=== PATIENT | female | born 1950 | race Caucasian/White ===

== ENCOUNTER 2018-05-25 13:11 | Emergency (ER) | payer MEDICARE, OTHER ==
[~2018-05-25] VITALS: Ht 162.6 cm; Wt 68.0 kg
[~2018-05-25 13:11] MED LIST: AMIT10 PO; ASCO500; ASPI325 PO; ASPI81CH; ASPI81CH PO; Amoxicillin500 MG PO; B Complete1 EACH PO; CITA20 PO; CLON.5 PO; CYCL10; DIAZ5; ESCI10 PO; FISH1000; FLUCONAZOL400 MG/200 IV; GABA300; GABA300 PO; HYDR1TAB94 PO; MELATONIN10 M2; METO25ER PO; Mycamine100 MG/VIA IV; NAPR550; NORT25 PO; ONDA4 PO; OXYACE5T PO; OXYC10TA19 PO; OXYC30ER PO; OXYC5; OXYC5 PO; TIZANIDINE HCL2 MG PO
[2018-05-25] MEDS ORDERED: Bupropion Xl150 MG PO (13:23)
[2018-05-25] MEDS ORDERED: TRAZ50 PO (13:23)
[2018-05-25] MEDS ORDERED: ESCI20 PO (13:23)
[2018-05-25] MEDS ORDERED: FLUC200 PO (13:24)
[2018-05-25 14:13] LABS: BASOPHILS ABSOLUTE AUTO 0.03 K/mm3 (0.00-0.23); BASOPHILS PERCENT AUTO 0 % (0-2); EOSINOPHILS ABSOLUTE AUTO 0.77 K/mm3 (0.00-0.68); EOSINOPHILS PERCENT AUTO 9 % (0-6); Hematocrit 45.4 % (33.0-51.0); Hemoglobin 14.2 g/dL (11.5-16.0); IMMATURE GRAN ABSOLUTE AUTO 0.04 K/mm3 (0.00-0.10); IMMATURE GRAN PERCENT AUTO 0 % (0-1); LYMPHOCYTES ABSOLUTE AUTO 1.34 K/mm3 (0.84-5.20); LYMPHOCYTES PERCENT AUTO 15 % (21-46); MONOCYTES ABSOLUTE AUTO 0.51 K/mm3 (0.16-1.47); MONOCYTES PERCENT AUTO 6 % (4-13); Mean Corpuscular HGB 29.1 pg (26.0-34.0); Mean Corpuscular HGB Conc 31.3 g/dL (31.5-36.5); Mean Corpuscular Volume 93 fL (80-100); Mean Platelet Volume 9.3 fL (9.1-12.4); NEUTROPHILS ABSOLUTE AUTO 6.23 K/mm3 (1.96-9.15); NEUTROPHILS PERCENT AUTO 70 % (41-73); Platelet Count 332 K/mm3 (150-400); RDW Coefficient Variation 13.6 % (11.7-14.2); RDW Standard Deviation 45.9 fL (35.1-46.3); Red Blood Cell Count 4.88 M/mm3 (3.80-5.20); White Blood Cell Count 8.92 K/mm3 (4.00-11.30)
[2018-05-25 14:30] LABS: Alanine Aminotransfer (ALT/SGP 13 U/L (12-78); Albumin, Blood 3.5 g/dL (3.4-5.0); Alk Phos 76 U/L (50-136); Anion Gap 10 mmol/L (6-16); Aspartate Aminotrans (AST/SGOT 15 U/L (12-37); Bilirubin, Total 0.5 mg/dL (0.1-1.0); Blood Urea Nitrogen 18 mg/dL (8-24); Bun/Creatinine Ratio 20.3 (12.0-20.0); CO2, Blood 25 mmol/L (21-32); Calcium, Blood 8.9 mg/dL (8.5-10.1); Chloride, Blood 104 mmol/L (98-108); Creatinine, Blood 0.89 mg/dL (0.40-1.00); Globulin, Blood 3.6 g/dL (2.2-4.0); Glomerular Filtration Rate >60 (60-); Glucose, Blood 101 mg/dL (70-99); Potassium, Blood 3.6 mmol/L (3.5-5.5); Sodium, Blood 139 mmol/L (136-145); Total Protein, Blood 7.1 g/dL (6.4-8.2)
[2018-05-25] MEDS ORDERED: Zofran Odt4 MG SL (16:51)
[2018-05-25] MEDS ORDERED: Cipro500 MG PO (16:51)
[2018-05-25] MEDS ORDERED: Flagyl500 MG PO (16:51)
== END 2018-05-25 17:06 | disposition home or self-care (01) ==
LOC: ER 13:11
PROVIDERS: Nurse Practitioner Family
DX: K52.9 Noninfective gastroenteritis and colitis, unspecified (principal); Z88.5 Allergy status to narcotic agent; Z79.899 Other long term (current) drug therapy; F32.9 Major depressive disorder, single episode, unspecified; Z87.891 Personal history of nicotine dependence
CPT/HCPCS: 36415; 74177; 80053; 83690; 85025; 96360; 96361; 99284-25; J7030; Q9967

== ENCOUNTER → 2019-08-29 | Outpatient (CLI) | payer OTHER ==
[~2019-08-29] MED LIST changes: +Bupropion Xl150 MG PO; +Cipro500 MG PO; +ESCI20 PO; +FLUC200 PO; +Flagyl500 MG PO; +TRAZ50 PO; +Zofran Odt4 MG SL
[2019-08-29 20:47] LABS: Adenovirus F 40/41 Not Detected (NOT DETECT); Astrovirus Not Detected (NOT DETECT); Campylobacter Sp Not Detected (NOT DETECT); Cryptosporidium Not Detected (NOT DETECT); Cyclospora Cayetanensis Not Detected (NOT DETECT); E. Coli O157 Not Detected (NOT DETECT); Entamoeba Histolytica Not Detected (NOT DETECT); Enteroaggregative E. coli-EAEC Not Detected (NOT DETECT); Enteropathogenic E. coli-EPEC Not Detected (NOT DETECT); Enterotoxigenic E. coli-ETEC Not Detected (NOT DETECT); Giardia Lamblia Not Detected (NOT DETECT); Norovirus GI/GII Not Detected (NOT DETECT); Plesiomonas Shigelloides Not Detected (NOT DETECT); Rotavirus A Not Detected (NOT DETECT); Salmonella Sp Not Detected (NOT DETECT); Sapovirus Not Detected (NOT DETECT); Shiga Toxin-prod E. coli-STEC Not Detected (NOT DETECT); Shigella/Enteroin E. coli-EIEC Not Detected (NOT DETECT); Vibrio Cholerae Not Detected (NOT DETECT); Vibrio Sp Not Detected (NOT DETECT); Yersinia Enterocolitica Not Detected (NOT DETECT)
== END | disposition home or self-care (01) ==
LOC: LAB SHORT 15:00 → OLS 15:00 → LAB FUT 08-15 15:20
PROVIDERS: Student in an Organized Health Care Education/Training Program
DX: R19.7 Diarrhea, unspecified (principal); R10.30 Lower abdominal pain, unspecified
CPT/HCPCS: 0097U

== ENCOUNTER → 2021-10-24 | Outpatient (CLI) | payer OTHER ==
[2021-10-24 17:09] LABS: Bun/Creatinine Ratio 16.9 (12.0-20.0); Calcium, Blood 9.5 mg/dL (8.5-10.1); Creatinine, Blood 0.95 mg/dL (0.40-1.00); Potassium, Blood 4.3 mmol/L (3.5-5.5)
== END | disposition home or self-care (01) ==
LOC: LAB 13:23 → LAB SHORT 13:23
PROVIDERS: Nurse Practitioner Family
DX: R94.4 Abnormal results of kidney function studies (principal)
CPT/HCPCS: 80048

== ENCOUNTER → 2021-11-24 | Outpatient (CLI) | payer OTHER | END | disposition home or self-care (01) | LOC: LAB 17:22 → LAB SHORT 17:22 | DX: R30.9 Painful micturition, unspecified (principal) | CPT/HCPCS: 87086 ==

== ENCOUNTER → 2021-12-30 | Outpatient (CLI) | payer OTHER | END | disposition home or self-care (01) | LOC: LAB 12:52 → LAB SHORT 12:52 | DX: R19.7 Diarrhea, unspecified (principal) | CPT/HCPCS: 87177; 87209 ==

== ENCOUNTER → 2022-05-23 | Outpatient (CLI) | payer OTHER ==
[2022-05-23 17:13] LABS: Adenovirus F 40/41 Not Detected (NOT DETECT); Astrovirus Not Detected (NOT DETECT); Campylobacter Sp Not Detected (NOT DETECT); Cryptosporidium Not Detected (NOT DETECT); Cyclospora Cayetanensis Not Detected (NOT DETECT); E. Coli O157 Not Detected (NOT DETECT); Entamoeba Histolytica Not Detected (NOT DETECT); Enteroaggregative E. coli-EAEC Not Detected (NOT DETECT); Enteropathogenic E. coli-EPEC Not Detected (NOT DETECT); Enterotoxigenic E. coli-ETEC Not Detected (NOT DETECT); Giardia Lamblia Not Detected (NOT DETECT); Norovirus GI/GII Not Detected (NOT DETECT); Plesiomonas Shigelloides Not Detected (NOT DETECT); Rotavirus A Not Detected (NOT DETECT); Salmonella Sp Not Detected (NOT DETECT); Sapovirus Not Detected (NOT DETECT); Shiga Toxin-prod E. coli-STEC Not Detected (NOT DETECT); Shigella/Enteroin E. coli-EIEC Not Detected (NOT DETECT); Vibrio Cholerae Not Detected (NOT DETECT); Vibrio Sp Not Detected (NOT DETECT); Yersinia Enterocolitica Not Detected (NOT DETECT)
== END | disposition home or self-care (01) ==
LOC: LAB 11:40 → LAB SHORT 11:40
PROVIDERS: Nurse Practitioner Family
DX: R19.7 Diarrhea, unspecified (principal)
CPT/HCPCS: 83993; 87324; 87507

== ENCOUNTER → 2022-11-24 | Outpatient (CLI) | payer OTHER ==
[2022-11-24 14:32] LABS: BASOPHILS ABSOLUTE AUTO 0.06 K/mm3 (0.00-0.23); BASOPHILS PERCENT AUTO 1 % (0-2); EOSINOPHILS ABSOLUTE AUTO 0.38 K/mm3 (0.00-0.68); EOSINOPHILS PERCENT AUTO 6 % (0-6); Hematocrit 42.6 % (33.0-51.0); IMMATURE GRAN ABSOLUTE AUTO 0.03 K/mm3 (0.00-0.10); IMMATURE GRAN PERCENT AUTO 1 % (0-1); LYMPHOCYTES ABSOLUTE AUTO 1.88 K/mm3 (0.84-5.20); LYMPHOCYTES PERCENT AUTO 31 % (21-46); MONOCYTES ABSOLUTE AUTO 0.48 K/mm3 (0.16-1.47); MONOCYTES PERCENT AUTO 8 % (4-13); Mean Corpuscular HGB 30.4 pg (26.0-34.0); Mean Corpuscular HGB Conc 32.9 g/dL (31.5-36.5); Mean Corpuscular Volume 92 fL (80-100); Mean Platelet Volume 10.5 fL (9.1-12.4); NEUTROPHILS ABSOLUTE AUTO 3.18 K/mm3 (1.96-9.15); NEUTROPHILS PERCENT AUTO 53 % (41-73); Platelet Count 341 K/mm3 (150-400); RDW Coefficient Variation 12.7 % (11.7-14.2); Red Blood Cell Count 4.61 M/mm3 (3.80-5.20); White Blood Cell Count 6.01 K/mm3 (4.00-11.30)
[2022-11-24 15:55] LABS: Alanine Aminotransfer (ALT/SGP 20 U/L (12-78); Albumin, Blood 3.9 g/dL (3.4-5.0); Albumin/Globulin Ratio 1.1 (0.8-1.8); Alk Phos 67 U/L (50-136); Anion Gap 2 mmol/L (6-16); Aspartate Aminotrans (AST/SGOT 18 U/L (12-37); Bilirubin, Total 0.6 mg/dL (0.1-1.0); Blood Urea Nitrogen 22 mg/dL (8-24); Bun/Creatinine Ratio 20.8 (12.0-20.0); CHOL/HDL RATIO 4.1; CO2, Blood 27 mmol/L (21-32); Calcium, Blood 9.1 mg/dL (8.5-10.1); Chloride, Blood 108 mmol/L (98-108); Cholesterol 246 mg/dL (50-200); Creatinine, Blood 1.06 mg/dL (0.40-1.00); Globulin, Blood 3.4 g/dL (2.2-4.0); Glomerular Filtration Rate 55 (60-); Glucose, Blood 96 mg/dL (70-99); HDL Cholesterol 60 mg/dL (>39); LDL/HDL RATIO 2.6; Low Density Lipoprotein Chol 155 mg/dL (0-110); Potassium, Blood 4.7 mmol/L (3.5-5.5); Sodium, Blood 137 mmol/L (136-145); Total Protein, Blood 7.3 g/dL (6.4-8.2); Triglycerides 155 mg/dL (30-160); Very Low Density Lipoprot Chol 31 mg/dL (6-32)
== END | disposition home or self-care (01) ==
LOC: LAB 13:45 → LAB SHORT 13:45
PROVIDERS: Nurse Practitioner Family
DX: E66.9 Obesity, unspecified (principal); R53.83 Other fatigue
CPT/HCPCS: 80053; 80061; 84443; 85025

== ENCOUNTER → 2023-06-08 | Outpatient (CLI) | payer OTHER ==
[2023-06-08 13:05] LABS: Adenovirus F 40/41 Not Detected (NOT DETECT); Astrovirus Not Detected (NOT DETECT); Campylobacter Sp Not Detected (NOT DETECT); Cryptosporidium Not Detected (NOT DETECT); Cyclospora Cayetanensis Not Detected (NOT DETECT); E. Coli O157 Not Detected (NOT DETECT); Entamoeba Histolytica Not Detected (NOT DETECT); Enteroaggregative E. coli-EAEC Not Detected (NOT DETECT); Enteropathogenic E. coli-EPEC Not Detected (NOT DETECT); Enterotoxigenic E. coli-ETEC Not Detected (NOT DETECT); Giardia Lamblia Not Detected (NOT DETECT); Norovirus GI/GII Not Detected (NOT DETECT); Plesiomonas Shigelloides Not Detected (NOT DETECT); Rotavirus A Not Detected (NOT DETECT); Salmonella Sp Not Detected (NOT DETECT); Sapovirus Not Detected (NOT DETECT); Shiga Toxin-prod E. coli-STEC Not Detected (NOT DETECT); Shigella/Enteroin E. coli-EIEC Not Detected (NOT DETECT); Vibrio Cholerae Not Detected (NOT DETECT); Vibrio Sp Not Detected (NOT DETECT); Yersinia Enterocolitica Not Detected (NOT DETECT)
== END ==
LOC: LAB SHORT 08:00 → LAB 08:00 → LAB FUT 05-07 11:10
PROVIDERS: Nurse Practitioner Family
DX: R19.7 Diarrhea, unspecified (principal)
CPT/HCPCS: 87324; 87507

== ENCOUNTER 2024-07-08 09:43 | Day surgery (SDC) | payer OTHER ==
[~2024-07-08] VITALS: Ht 160 cm; Wt 62.2 kg
[2024-07-08] VITALS (17 sets, daily range): BP systolic 100–130; BP diastolic 53–99
[~2024-07-08 09:43] MED LIST changes: +ATOR20 PO; +DULO30 PO; +PREG150 PO; +PROBIOTIC1 EA14 PO
[2024-07-08] MEDS ORDERED: Lactated Ringer's 1,000 ML IV SCH ×2 (10:05→10:45)
[2024-07-08] MEDS ORDERED: Chlorhexidine Mouth Care 15 ML UDC MT SCH (10:05)
[2024-07-08] MEDS ORDERED: Tranexamic Acid 1,000 MG in NS 100 ML IV SCH (10:05)
[2024-07-08] MEDS ORDERED: Acetaminophen 500 MG Tab PO SCH ×2 (10:05→21:00)
[2024-07-08] MEDS ORDERED: CeFAZolin Sodium 2,000 MG in NS 100 ML IV SCH ×2 (10:05→20:00)
[2024-07-08] MEDS ORDERED: Ropivacaine 0.5% HCl/Pf 123.125 MG,EPINEPHrine HCL 0.25 MG,Ketorolac Tromethamine 15 MG... INFIL SCH (10:05)
[2024-07-08] MEDS ORDERED: CeFAZolin Sodium 2,000 MG VIAL ONE (10:12)
[2024-07-08] MEDS ORDERED: Promethazine HCl 25 MG Tab PO PRN (10:40)
[2024-07-08] MEDS ORDERED: DiphenhydrAMINE HCL 25 MG Cap PO PRN (10:40)
[2024-07-08] MEDS ORDERED: FLU VACC TS2024-25(6MOS UP)/PF 45 MCG/0.5 ML SYRINGE IM ONE (10:40)
[2024-07-08] MEDS ORDERED: Bisacodyl 10 MG Supp PR PRN (10:40)
[2024-07-08] MEDS ORDERED: HYDROmorphone HCl/Pf 1MG SYR IV PRN (10:40)
[2024-07-08] MEDS ORDERED: Ondansetron HCl 2 MG / ML 2ML Vial IV PRN (10:45)
[2024-07-08] MEDS ORDERED: Magnesium Hydroxide Conc 10 ML UDC PO PRN (10:45)
[2024-07-08] MEDS ORDERED: OxyCODONE HCL 5 MG TAB PO PRN ×2 (10:45)
--- NOTE | 2024-07-08 10:53 | NUR ---
History, Chart, Medications and Allergies reviewed before start of procedure. Pre-Op teaching done. Pt verbalizes understanding. Patient confirms NPO status and agrees with scheduled surgery. PT BELONGINGS BAG PLACED UNDER BED. PT GLASSES PLACED IN PACU.
[2024-07-08] MEDS ORDERED: Metoclopramide HCl 5MG / ML 2ML Vial IV PRN (12:35)
[2024-07-08] MEDS ORDERED: propofoL 50 ML IV ONE (12:39)
[2024-07-08] MEDS ORDERED: Midazolam HCl 1MG / ML 2ML Vial ONE (12:39)
[2024-07-08] MEDS ORDERED: FentaNYL Citrate 50 MCG/ML 2 ML Injection ONE ×2 (12:57→14:48)
[2024-07-08] MEDS ORDERED: Phenylephrine HCl 10mg/ml 1 ml Vial ONE (13:05)
[2024-07-08] MEDS ORDERED: HYDROmorphone HCl/Pf 1MG SYR ONE (15:01)
[2024-07-08] MEDS ORDERED: Ketorolac Tromethamine 30mg Vial ONE (15:02)
--- NOTE | 2024-07-08 15:51 | NUR ---
POST OP NOTE PT IS ALERT AND FOLLOWING COMMANDS. DRESSING C/D/I, CIRCULATION INTACT TO LLE. PT ABLE TO WIGGLE TOES. VSS. PT MEDICATED FOR PAIN PER EMAR SHORTLY AFTER ARRIVAL. HAIR LEMUS, POLAR PACK ON. CALL LIGHT IN REACH AND FAMILY AT BEDSIDE.
[2024-07-08] MEDS ORDERED: Metoclopramide HCl 5MG / ML 2ML Vial ONE (16:16)
[2024-07-08] MEDS ORDERED: Ondansetron HCl 2 MG / ML 2ML Vial ONE (16:16)
[2024-07-08] MEDS ORDERED: Sugammadex Sodium 200 MG/2ML SDV (100 MG/ML) ONE (17:03)
[2024-07-08] MEDS ORDERED: Ketorolac Tromethamine 15mg Vial IV SCH (18:00)
--- NOTE | 2024-07-08 18:38 | NUR ---
SHIFT SUMMARY PT IS POD0 FOR L TKA. PT IS ALERT, FOLLOWING COMMANDS. TOLERATING PO REG DIET AND FLUIDS. PAIN IS TOLERABLE W/ PAIN MEDS PER EMAR. PT HAS NOT BEEN OOB SINCE SURGERY, REQUESTING TO GET UP AFTER DINNER. VSS. DRESSING C/D/I, CAP REFILL 2 SECS IN L LEG. DENIES N/T TO LLE. PAS, HAIR YUAN, POLAR PACK IN PLACE. PT CURRENTLY RESTING IN BED, CALL LIGHT IN REACH.
[2024-07-08] MEDS ORDERED: Docusate Sodium 100 MG Cap PO SCH (21:00)
[2024-07-08] MEDS ORDERED: Pregabalin 75 MG Cap PO SCH (21:00)
[2024-07-08] MEDS ORDERED: Atorvastatin 10 MG Tab PO SCH (21:00)
[2024-07-09 03:38] VITALS: BP 102/65
--- NOTE | 2024-07-09 04:34 | NUR ---
SHIFT SUMMARY POD 1 L TKA PT RESTLESS T/O THE NIGHT. PAIN MANAGED PER EMAR. TOLERATING PO INTAKE, VOIDING. PT IS 1P SBA W/ FWW AND GB, PT NEEDS LOTS OF CUEING AND REMINDERS. DRESING OF YUKO AND AQUACEL TO L KNEE IS C/D/I. PLAN TO GET UP IN CHAIR THIS AM AND WORK WITH THERAPY. THEN OKAY TO D/C HOME. VSS. NO OTHER CONCERNS AT THIS TIMEM, CALL LIGHT WITHIN REACH
[2024-07-09 05:44] LABS: BASOPHILS ABSOLUTE AUTO 0.01 K/mm3 (0.00-0.23); BASOPHILS PERCENT AUTO 0 % (0-2); EOSINOPHILS PERCENT AUTO 0 % (0-6); Hematocrit 35.1 % (33.0-51.0); Hemoglobin 11.4 g/dL (11.5-16.0); IMMATURE GRAN ABSOLUTE AUTO 0.06 K/mm3 (0.00-0.10); IMMATURE GRAN PERCENT AUTO 1 % (0-1); LYMPHOCYTES ABSOLUTE AUTO 1.06 K/mm3 (0.84-5.20); LYMPHOCYTES PERCENT AUTO 11 % (21-46); MONOCYTES ABSOLUTE AUTO 0.53 K/mm3 (0.16-1.47); MONOCYTES PERCENT AUTO 5 % (4-13); Mean Corpuscular HGB Conc 32.5 g/dL (31.5-36.5); Mean Corpuscular Volume 92 fL (80-100); Mean Platelet Volume 9.9 fL (9.1-12.4); NEUTROPHILS ABSOLUTE AUTO 8.31 K/mm3 (1.96-9.15); NEUTROPHILS PERCENT AUTO 83 % (41-73); Platelet Count 291 K/mm3 (150-400); RDW Coefficient Variation 13.9 % (11.7-14.2); RDW Standard Deviation 47.2 fL (35.1-46.3); White Blood Cell Count 9.97 K/mm3 (4.00-11.30)
[2024-07-09 06:21] LABS: Bun/Creatinine Ratio 23.4 (12.0-20.0); Creatinine, Blood 0.77 mg/dL (0.40-1.00); Potassium, Blood 3.8 mmol/L (3.5-5.5)
[2024-07-09] MEDS ORDERED: Aspirin 81 MG Chew PO SCH (08:00)
[2024-07-09 08:47] VITALS: BP 110/59
[2024-07-09] MEDS ORDERED: Metoprolol Succinate 25 MG TABCR PO SCH (09:00)
[2024-07-09] MEDS ORDERED: DULoxetine HCL 30 MG Cap DR PO SCH (09:00)
[2024-07-09] MEDS ORDERED: Citalopram Hydrobromide 20 MG Tab PO SCH (09:00)
--- NOTE | 2024-07-09 10:23 | NUR ---
DISCHARGE POD 1 LTKA PT [id number], PAIN WELL CONTROLLED PER EMAR, DENIES NEED FOR MEDICATIONS AT THIS TIME. WORKED WELL WITH THERAPY, AMBULATING WELL WITH FWW AND GAIT BELT. DRESSING CDI. ALL INSTRUCTIONS GONE OVER WITH PATIENT AND GRANDDAUGHTTER. ALL QUESTIONS ANSWERED. ALL BELONGINGS WITH PATIENT. ESCORTED OUT VIA WHEELCHAIR.
== END 2024-07-09 10:03 | disposition home or self-care (01) ==
LOC: ORSCMMR 09:43 → ORD 11:00 → ORSCMMR 11:00 → ORD 12:00 → SURS 15:42 → ORSCMMR 07-09 10:03
PROVIDERS: Orthopaedic Surgery
PROC: 0SRD0JA Replacement of Left Knee Joint with Synthetic Substitute, Uncemented, Open Approach (ICD-10-PCS; principal; 2024-07-08 11:00)
PROC: 8E0Y0CZ Robotic Assisted Procedure of Lower Extremity, Open Approach (ICD-10-PCS; principal; 2024-07-08 11:00)
DX: M17.12 Unilateral primary osteoarthritis, left knee (principal); Z96.643 Presence of artificial hip joint, bilateral; F41.9 Anxiety disorder, unspecified; F32.A Depression, unspecified; Z79.899 Other long term (current) drug therapy; Z79.82 Long term (current) use of aspirin; Z86.73 Personal history of transient ischemic attack (TIA), and cerebral infarction without residual deficits
CPT/HCPCS: 36415; 73560-LT; 80048; 85025; 97110; 97112; 97116; 97161; 97530; A9270; C1713; C1776; J0171; J0690; J0735; J1171; J1885; J2250; J2371; J2405; J2704; J2765; J2795; J3010; J7120